=== PATIENT | male | born 1985 | race Caucasian/White ===

== ENCOUNTER 2016-12-31 19:41 | Emergency (ER) | payer SELFPAY ==
[~2016-12-31] VITALS: Ht 170.2 cm; Wt 59.0 kg
[2016-12-31 19:54] VITALS: BP 128/83
[2016-12-31] MEDS ORDERED: ACETAMINOPHEN ES 500 MG TABLET ONE (21:37)
[2016-12-31] MEDS ORDERED: ACETAMINOPHEN ES 500 MG TABLET PO ONE (22:00)
== END 2016-12-31 21:45 | disposition home or self-care (01) ==
LOC: ER 19:43
DX: S39.012A Strain of muscle, fascia and tendon of lower back, initial encounter (principal); Z88.0 Allergy status to penicillin; V03.09XA Pedestrian with other conveyance injured in collision with car, pick-up truck or van in nontraffic accident, initial encounter; Y93.01 Activity, walking, marching and hiking; Y92.488 Other paved roadways as the place of occurrence of the external cause; Y99.8 Other external cause status
CPT/HCPCS: A4606; Z7610